=== PATIENT | male | born 1950 | race Caucasian/White ===

== ENCOUNTER 2018-10-12 10:48 | Emergency (ER) | payer MEDICARE ==
[2018-10-12 11:08] VITALS: BP 145/60
--- NOTE | 2018-10-12 11:19 | UC ---
Throat Pain/Nasal Tip HPI - HPI Summary HPI Summary: SORE THROAT, SINUS CONGESTION, AND COUGH X10 DAY - History of Current Complaint Chief Complaint: UCGeneralIllness Stated Complaint: SORE THROAT, COUGH Time Seen by Provider: 10/12/18 11:01 Hx Obtained From: Patient Onset/Duration: Sudden Onset, Lasting Days Severity: Mild Pain Intensity: 0 Associated Signs & Symptoms: Positive: Dysphagia, Sinus Discomfort, Nasal Discharge - Allergies/Home Medications Allergies/Adverse Reactions: Allergies Allergy/AdvReac Type Severity Reaction Status Date / Time No Known Allergies Allergy Verified 10/12/18 11:05 PMH/Surg Hx/FS Hx/Imm Hx Previously Healthy: Yes - Surgical History Surgical History: Yes Surgery Procedure, Year, and Place: left inguinal hernia repair 2009, right ankle fx repair - Family History Known Family History: Positive: Hypertension - Social History Alcohol Use: None Alcohol Amount: not in 7 years Substance Use Type: None Smoking Status (MU): Former Smoker Review of Systems All Other Systems Reviewed And Are Negative: Yes Constitutional: Positive: Fatigue ENT: Positive: Sore Throat, Nasal Discharge, Sinus Congestion Respiratory: Positive: Cough Is Patient Immunocompromised?: No Physical Exam Triage Information Reviewed: Yes Appearance: Well-Nourished, Ill-Appearing, Pain Distress Vital Signs: Initial Vital Signs Temp 99.8 F 10/12/18 11:02 Pulse 111 10/12/18 11:02 Resp 20 10/12/18 11:02 BP 145/60 10/12/18 11:02 Pulse Ox 97 10/12/18 11:02 Vital Signs Reviewed: Yes Eye Exam: Normal ENT: Positive: Pharyngeal erythema - wiht PND, Nasal congestion, Nasal drainage , TM bulging Dental Exam: Normal Neck exam: Normal Respiratory: Positive: Chest non-tender, Lungs clear, Normal breath sounds Cardiovascular Exam: Normal Cardiovascular: Positive: No Murmur, Pulses Normal, Tachycardia Abdominal Exam: Normal Abdomen Description: Positive: Nontender, No Organomegaly, Soft Bowel Sounds: Positive: Present Musculoskeletal Exam: Normal Neurological Exam: Normal Psychological Exam: Normal Skin Exam: Normal Throat Pain/Nasal Course/Dx - Course Course Of Treatment: hx obtained, exam performed ,meds reviewed, treated for sinusitis - Differential Dx/Diagnosis Differential Diagnosis/HQI/PQRI: Otitis Media, Pharyngitis, Sinusitis, URI Provider Diagnosis: Pharyngitis, Sinusitis Discharge - Sign-Out/Discharge Documenting (check all that apply): Patient Departure All imaging exams completed and their final reports reviewed: No Studies - Discharge Plan Condition: Stable Disposition: HOME Prescriptions: Amoxicillin PO (*) [Amoxicillin 875 MG (*)] 875 mg PO BID #20 tab Patient Education Materials: Sinusitis (ED) Referrals: Debbi Keene MD [Primary Care Provider] - Additional Instructions: 1. take the medication as prescribed. 2. Rest and get plenty of fluids 3. Salt water gargles multiple times a day 4. follow up with your doctor if not improving with treatment - Billing Disposition and Condition Condition: STABLE Disposition: Home
== END 2018-10-12 11:26 | disposition home or self-care (01) ==
LOC: UCCORT 10:48
DX: J02.9 Acute pharyngitis, unspecified (principal); J32.9 Chronic sinusitis, unspecified; R05 Cough; R09.81 Nasal congestion; Z87.891 Personal history of nicotine dependence
CPT/HCPCS: 99212; G0463

== ENCOUNTER 2019-01-14 09:15 | Day surgery (SDC) | payer MEDICARE ==
--- NOTE | 2019-01-01 10:53 | HP ---
AMENDED REPORT NOW INCLUDES DESIGNATED COSIGNER PREOPERATIVE HISTORY AND PHYSICAL: DATE OF ADMISSION: 01/14/19 DATE OF OFFICE VISIT/ENCOUNTER: 12/25/18 ATTENDING PHYSICIAN: Rasheeda Garrido MD.* (DICTATED BY MICHAEL SHELBY) PROCEDURE: Right wrist carpal tunnel release, extensor tenosynovectomy. HISTORY OF PRESENT ILLNESS: This is a 68-year-old male who has had ongoing symptoms of right carpal tunnel syndrome and tenosynovitis of the extensor tendons of the right wrist. Symptoms have been ongoing for nearly a year. He had a nerve conduction study which showed severe carpal tunnel syndrome bilaterally. As far as the tenosynovitis of the extensor tendons are concerned he has failed conservative treatment including rest and cortisone injections. He has now consented to proceed with surgical intervention for both of these problems. His family assessment worker is Dr. Clifton and we will receive clearance from him prior to proceeding with surgery. The patient is on Plavix and we will plan on having him stop taking that prior to surgery per Dr. Clifton's instructions. PAST MEDICAL HISTORY: 1. COPD. 2. Depression/anxiety. 3. History of TIA. 4. GERD. 5. History of basal cell carcinoma. 6. BPH. 7. Questionable MRSA infection after right ankle surgery in 2015. PAST SURGICAL HISTORY: 1. Right ankle surgery in 2015. 2. Basal cell carcinoma removal. 3. Hernia repair. CURRENT MEDICATIONS: 1. Aspirin 81 mg daily. 2. Clopidogrel bisulfate 75 mg daily. 3. Lyrica 50 mg twice a day. 4. Magnesium oxide 400 mg daily. 5. Omeprazole 40 mg daily. 6. Spiriva HandiHaler 18 mcg 1 unit inhalation daily. 7. Symbicort 2 puffs twice a day. 8. Tamsulosin HCl 0.4 mg daily. 9. Trazodone HCl daily. 10. Ventolin inhaler 2 puffs 4 times a day p.r.n. 11. Zoloft 50 mg daily. ALLERGIES: PENICILLIN, reaction unknown. FAMILY MEDICAL HISTORY: Heart disease, hypertension, stroke, cancer. SOCIAL HISTORY: The patient is retired, he previously worked in a [employer]. He is a former smoker. He quit 4 years ago. Prior to that he smoked up to 2 packs per day since age 13. He denies recreational drug use. He drinks alcohol on occasion. REVIEW OF SYSTEMS: Negative for general, cephalic, cardiovascular, respiratory , GI, , other musculoskeletal, integumentary, endocrine, neurologic, and hematologic symptoms. Infectious Diseases: Positive for history of MRSA in 2015. Negative for hepatitis C, HIV. PHYSICAL EXAMINATION GENERAL: Well-developed, well-nourished 68-year-old male, in no acute distress. VITAL SIGNS: Height 5 feet 11 inches, weight 184 pounds, pulse rate 86, blood pressure 130/68. HEENT: Normocephalic and atraumatic. Pupils are equal, round, and reactive to light and accommodation. Extraocular movements are intact. Throat is clear. NECK: Supple. No palpable lymph nodes. PULMONARY: Lungs are clear to auscultation bilaterally. No wheezes, rales, or rhonchi. CARDIOVASCULAR: Regular rate and rhythm. S1 and S2. No murmurs, rubs, or gallops. No edema. ABDOMEN: Positive bowel sounds. Soft and nontender. NEUROLOGIC: Alert and oriented x3. Cranial nerves II through XII are intact. MUSCULOSKELETAL: On exam of his right hand he has some tenosynovitis on the dorsum of the wrist at the third and fourth extensor compartments. He has decreased sensation in the medial nerve distribution. There is significant weakness with thumb abduction and some first dorsal interosseous wasting. He has some obvious degenerative changes in his fingers. IMAGING STUDIES: X-rays AP, lateral, and oblique at the right wrist show thumb CMC arthritis. Otherwise minimal to mild degenerative changes. EMG nerve conduction studies showed severe right carpal tunnel syndrome. IMPRESSION: Right wrist extensor tenosynovitis, right carpal tunnel syndrome. PLAN/RECOMMENDATIONS: The patient is scheduled to undergo a right wrist carpal tunnel release, extensor tenosynovectomy on 01/14/[address] Garrido. He will return to the office initially 2 days postop for drain removal and then 10 days postop for suture removal. A prescription for [place] was e-scribed to the patient's pharmacy for post-operative pain management. MICHAEL SHELBY [id number]/[facility] #: [id number] [place]
[~2019-01-14 09:15] MED LIST: Buffered Lidocaine 1% SYRIN* 1 ML/SYRINGE INTRADERM ONE; Lactated Ringers 1000 ML Bag* 1,000 ML IV SCH
[2019-01-14] MEDS ORDERED: Clindamycin 900 MG IVPREMIX(* 900 MG/50 ML SDV IV ONE (09:39)
[2019-01-14] MEDS ORDERED: fentaNYL* 50 MCG/ML 2 ML VIAL (100 MCG VIAL) ONE (10:20)
[2019-01-14] MEDS ORDERED: Midazolam* 1 MG/ML 2 ML VIAL (2 MG) ONE (10:21)
[2019-01-14] MEDS ORDERED: Lidocaine 1% INJ* 10 MG/ML 30 ML SDV ONE (10:39)
[2019-01-14] MEDS ORDERED: Lidocaine 0.5%* 50 ML SDV ONE (10:42)
[2019-01-14] MEDS ORDERED: Naloxone* 0.4 MG/ML 1 ML VIAL IV PRN (12:07)
[2019-01-14 12:35] VITALS: BP 112/68
--- NOTE | 2019-01-14 12:44 | OP ---
DATE OF OPERATION: 01/14/19 - [facility] DATE OF : 52 SURGEON: Rasheeda Garrido MD PIPE WELDER: MICHAEL Arshad ANESTHESIA: IV regional. PRE-OP DIAGNOSES: Right carpal tunnel syndrome and extensor tenosynovitis. POST-OP DIAGNOSES: Right carpal tunnel syndrome and extensor tenosynovitis. OPERATIVE PROCEDURE: Right carpal tunnel release and extensor tenosynovitis in 4 extensor compartments. ESTIMATED BLOOD LOSS: Zero. TOURNIQUET TIME: About 35 minutes. INDICATION FOR PROCEDURE: Sav is a 69-year-old man who has swelling on the dorsal aspect of his right wrist as well as numbness and tingling in the median nerve distribution of his right hand. Nerve conduction study shows severe carpal tunnel syndrome. He has failed conservative treatment for both problems , presents for extensor tenosynovectomy and carpal tunnel release. DESCRIPTION OF PROCEDURE: The patient was brought to the operating room, was given a sedation anesthetic and an IV regional anesthetic with a tourniquet around his right forearm. The skin of his right upper extremity was prepped and draped in the usual sterile fashion. A longitudinal incision was made in the palm in line with the ring finger. We dissected through the subcutaneous tissue down to the transverse carpal ligament. The ligament was divided sharply with a knife and then more proximally with the scissors. The nerve was dissected free from the surrounding tissue and there was an area of moderate compression at the mid portion of the ligament. The wound was irrigated and the skin edges were reapproximated with 4-0 nylon suture. Next, at the first dorsal compartment, a small longitudinal incision was made and a branch of the radial sensory nerve was located and retracted by the surgical technology instructor, Karla Bird. The extensor tenosynovitis in the first compartment was completely excised and sent for pathology. The wound was irrigated and the skin edges were reapproximated with 4-0 nylon suture. Then, a longitudinal incision was made on the dorsal aspect of the wrist and we dissected down to the extensor retinaculum. There was extensor tenosynovitis in the fourth, third and second compartments, this was all carefully dissected off of the tendons which were all in excellent condition. The tenosynovitis did not extend all the way under the extensor retinaculum, so a portion of the retinaculum was left intact. The wound was copiously irrigated with saline. A Beatty drain was placed 0.25 inch and then the dorsal incision was closed in interrupted fashion with 4-0 nylon suture. The wounds were all dressed with Xeroform, 4x4, Webril, ABD, and an Maximiliano wrap. The patient tolerated the procedure well and was brought to the recovery room in good condition. [id number]/[facility] #: [id number] [place]
== END 2019-01-14 12:48 | disposition home or self-care (01) ==
LOC: OREAST 09:15
PROVIDERS: ATTEND Orthopaedic Surgery
DX: G56.01 Carpal tunnel syndrome, right upper limb (principal); M65.831 Other synovitis and tenosynovitis, right forearm; I25.10 Atherosclerotic heart disease of native coronary artery without angina pectoris; I25.2 Old myocardial infarction; J44.9 Chronic obstructive pulmonary disease, unspecified; R91.1 Solitary pulmonary nodule; K21.9 Gastro-esophageal reflux disease without esophagitis; F41.8 Other specified anxiety disorders; Z86.73 Personal history of transient ischemic attack (TIA), and cerebral infarction without residual deficits; L40.9 Psoriasis, unspecified
CPT/HCPCS: 88304; J2250; J3010